=== PATIENT | female | born 1980 | race African-American/Black ===

== ENCOUNTER 2020-07-26 07:49 | Day surgery (SDC) | payer SELFPAY ==
[2020-07-26] MEDS ORDERED: LIDOCAINE 1% INJ-PF (10 MG/ML) 30 ML SDV ONE ×2 (08:52→11:15)
[2020-07-26] MEDS ORDERED: BACITRACIN INJ 50,000 UNIT VIAL ONE (08:52)
[2020-07-26 09:19] LABS: ABSOLUTE EOSINOPHILS # (AUTO) 0.1 10^3/uL (0.0-0.6); ABSOLUTE LYMPHOCYTES (AUTO) 1.2 10^3/uL (0.5-4.7); ABSOLUTE MONOCYTES (AUTO) 0.3 10^3/uL (0.1-1.4); ABSOLUTE NEUT (AUTO) 1.8 10^3/uL (1.7-8.2); BASOPHILS % (AUTO) 0.4 % (0-2); EOSINOPHILS % (AUTO) 3.7 % (0-6); HEMATOCRIT 37.8 % (36.0-47.0); HEMOGLOBIN 12.6 g/dL (12.0-15.5); LYMPHOCYTES % (AUTO) 34.2 % (13-45); MEAN CORPUSCULAR HEMOGLOBIN 30.7 pg (27.0-33.4); MEAN CORPUSCULAR HGB CONC 33.4 g/dL (32.0-36.0); MEAN CORPUSCULAR VOLUME 92 fl (80-97); MONOCYTES % (AUTO) 8.5 % (3-13); PLATELET COUNT 240 10^3/uL (150-450); RED CELL DISTRIBUTION WIDTH 14.1 % (11.5-14.0); SEGMENTED NEUTROPHILS % (AUTO) 53.2 % (42-78); TOTAL CELLS COUNTED % (AUTO) 100 %; WHITE BLOOD COUNT 3.4 10^3/uL (4.0-10.5)
[2020-07-26] MEDS ORDERED: FENTANYL CITRATE INJ/PF 100 MCG/2 ML AMPUL ONE ×2 (10:00→11:15)
[2020-07-26] MEDS ORDERED: MIDAZOLAM 2 MG/2 ML INJ ONE ×3 (10:00→11:14)
--- NOTE | 2020-07-26 11:48 | Discharge Summary ---
Discharge Summary (SDC) - Discharge Final Diagnosis: Locally advanced right breast carcinoma Date of Surgery: 07/26/20 Discharge Date: 07/26/20 Condition: Good Treatment or Instructions: May use port; may shower in 48 hours; resume preoperative medications, diet, activity: Prescription added electronically; patient to follow-up with [facility] in 2 weeks Prescriptions: Ketorolac Tromethamine [Toradol 10 mg Tablet] 10 mg PO Q6HP PRN #14 tablet PRN Reason: Referrals: ALIA PHILLIPS MD [Primary Care Provider] - Discharge Diet: As Tolerated Discharge Activity: Activity As Tolerated Home Care Assistance: None Needed Report the Following to Your Physician Immediately: Shortness of Breath, Increase in Pain, Fever over 101 Degrees
--- NOTE | 2020-07-26 11:52 | Operative Report ---
Operative Report DATE OF SURGERY: 07/26/20 PREOPERATIVE DIAGNOSIS: Locally advanced right breast carcinoma POSTOPERATIVE DIAGNOSIS: Same OPERATION: 1. Focused ultrasound left neck, with ultrasound directed insertion of [id number]-o-Drxc catheter, left internal jugular vein. 2. Port placement to the left subclavian position. 3. Interpretation of intraoperative fluoroscopy. SURGEON: KATYA SORIANO ANESTHESIA: Moderate Sedation TISSUE REMOVED OR ALTERED: None COMPLICATIONS: None ESTIMATED BLOOD LOSS: Scant INTRAOPERATIVE FINDINGS: See below PROCEDURE: Patient was taken from the ambulatory area to the main cardiac catheterization lab where she was placed in supine position arms tucked, left neck and chest wall prepped and draped in sterile fashion. Surgical plan and surgical timeout were conducted. Left neck was scanned with a variable frequency linear transducer. Appropriate level of conscious sedation was induced. There is significant for a patent, compressible left internal jugular vein. Skin was anesthetized with 1% plain lidocaine, robert made with a 15 blade, micro needle and wire threaded into the left internal jugular vein without difficulty. A suitable site for placement of the port was chosen left subclavian position. Skin was anesthetized with 1% plain lidocaine. A 3 and half centimeter incision was made, parallel to the left clavicle, subcutaneous pocket developed with electrocautery, and single lumen catheter trimmed to the appropriate length, tunnel between the 2 incisions, then attached to the port with the plastic retention ring. The port was tucked into the left subclavian pocket. Under fluoroscopic guidance, the microwire was switched over to a conventional guidewire, 0.030 inches. The 8 [place]ander dilator introducer sheath was threaded over the wire, dilator and introducer removed, and free catheter fragment threaded into the left internal jugular vein. The tip of the catheter was advanced to the right atrium, and the strip away sheath removed. There was no kinking of the catheter at the neck. The catheter was aspirated and flushed with heparinized saline using a Anna needle. There is no mechanical bleeding. Sponge and counts are correct. All wounds closed with 3-0 Vicryl, benzoin and Steri-Strips. Documentation of the left internal jugular vein by ultrasound, and completion fluoroscopy retained in the patient's record by the radiology services team
[2020-07-26] MEDS ORDERED: KETOROLAC TROMETHAMINE INJ/PF 30 MG/1 ML SDV ONE ×2 (12:07→12:23)
[2020-07-26] MEDS ORDERED: KETOROLAC TROMETHAMINE INJ/PF 30 MG/1 ML SDV IV ONE (12:30)
[2020-07-26 13:02] VITALS: BP 142/96
--- NOTE | 2020-07-27 09:01 | RADIOLOGY REPORT (SQ) ---
EXAM DESCRIPTION: PORTACATH INSERTION IMAGES COMPLETED DATE/TIME: 07/26/2020 11:36 am REASON FOR STUDY: RT BREAST CA C50.911 MALIGNANT NEOPLASM OF UNSP SITE OF RIGHT FEMALE JESUSITA COMPARISON: None. FLUOROSCOPY TIME: Less than 0.1 minutes. Cine fluoroscopic images saved to PACS. TECHNIQUE: Intra-operative images acquired during surgical procedure to evaluate progress. NUMBER OF IMAGES: Cine fluoroscopic images. LIMITATIONS: None. FINDINGS: Images of the chest acquired during port placement. IMPRESSION: IMAGE(S) OBTAINED DURING PROCEDURE. COMMENT: Quality ID 145: Final reports for procedures using fluoroscopy that document radiation exp osure indices, or exposure time and number of fluorographic images (if radiation exposure indices are not available) Please consult full operative report of the attending physician for description of the procedure. TECHNICAL DOCUMENTATION: JOB ID: [id number] 2010 [employer]- All Rights Reserved Reading location - IP/workstation name: [email or web address]
== END 2020-07-26 13:10 | disposition home or self-care (01) ==
LOC: CCL 07:49
PROVIDERS: ATTEND Surgery
DX: C50.911 Malignant neoplasm of unspecified site of right female breast (principal); F17.200 Nicotine dependence, unspecified, uncomplicated; Z03.818 Encounter for observation for suspected exposure to other biological agents ruled out; Z80.6 Family history of leukemia
CPT/HCPCS: 36415; 84703; 85025; 87635; 36561; 76937; 77001; C1752; J2250; J3490 ×2; J3010; J1885; J1644; C9803

== ENCOUNTER → 2020-07-27 | Outpatient (CLI) | payer SELFPAY ==
[~2020-07-27] MED LIST: CEFAZOLIN 1 GM/D5W RTU 1 GM/50 ML RTUPB IV ONE
--- NOTE | 2020-07-27 18:46 | RADIOLOGY REPORT (SQ) ---
EXAM DESCRIPTION: CT CHEST WITH; CT ABD/PELVIS WITH IV ORAL IMAGES COMPLETED DATE/TIME: 07/27/2020 9:21 am REASON FOR STUDY: C50.411 MALIG NEOPLM OF UPPER-OUTER QUADRANT OF RIGHT FEMALE BREAST C50.411 MALIG NEOPLM OF UPPER-OUTER QUADRANT OF RIGHT FEMALE CONTRAST TYPE AND DOSE: contrast/concentration: Isovue 350.00 mmol/ml; Total Contrast Delivered: 100 .0 ml; Total Saline Delivered: 72.0 ml RENAL FUNCTION: None required. The patient is less than 50 years old. COMPARISON: None. TECHNIQUE: CT scan of the chest performed using helical scanning technique with dynamic intravenous contrast injection. Images reviewed with lung, soft tissue and bone windows. Reconstructed coronal a nd sagittal MPR images reviewed. All images stored on PACS. All CT scanners at this facility use dose modulation, iterative reconstruction, and/or weight based d osing when appropriate to reduce radiation dose to as low as reasonably achievable (ALARA). [facility]: Dose Right [facility]: CareDose [facility]: Dose Right [facility]: Teradose 4D [facility]: Medical [employer] RADIATION DOSE: CT Rad equipment meets quality standard of care and radiation dose reduction techniq ues were employed. CTDIvol: 11.4 - 16.6 mGy. DLP: 1993 mGy-cm. . LIMITATIONS: None. FINDINGS: AXILLAE: No adenopathy. CHEST WALL: No masses. No subcutaneous air. LUNGS: 50% left pneumothorax. No infiltrate, effusion, or mass. PLEURA: No effusions. No calcifications. THYROID: No masses or significant asymmetry. HILAR AND MEDIASTINAL STRUCTURES: No identified masses or abnormal nodes. AORTA AND GREAT VESSELS: No aneurysm. No dissection. PULMONARY ARTERIES: No identified pulmonary emboli. Study not optimized for the pulmonary arteries. HEART: No pericardial effusion. HARDWARE AND LIFELINES: Injection port on the left. BONES: No significant finding. OTHER: No other significant finding. IMPRESSION: 50% left pneumothorax. No evidence of metastatic disease in the thorax. COMPARISON: None. RADIATION DOSE: CT Rad equipment meets quality standard of care and radiation dose reduction techniq ues were employed. CTDIvol: 11.4 - 16.6 mGy. DLP: 1993 mGy-cm. mGy. TECHNIQUE: CT scan of the abdomen and pelvis performed with intravenous and oral contrast using priya lynette scanning technique with dynamic intravenous contrast injection. Images reviewed with lung, soft tissue and bone windows. Reconstructed coronal and sagittal MPR images reviewed. Delayed images for evaluation of the urinary system also acquired and evaluated. All images stored on PACS. All CT scanners at this facility use dose modulation, iterative reconstruction, and/or weight based d osing when appropriate to reduce radiation dose to as low as reasonably achievable (ALARA). [facility]: Dose Right [facility]: [employer]Care [facility]: Dose Right [facility]: Teradose 4D [facility]: [employer] FINDINGS: LIVER: There is a 12 mm low-density lesion in the right lobe of the liver. No other signi ficant findings. SPLEEN: Normal size. No focal lesions. PANCREAS: No masses. No significant calcifications. No adjacent inflammation or peripancreatic flui d collections. Pancreatic duct not dilated. GALLBLADDER: No identified stones by CT criteria. No inflammatory changes to suggest cholecystitis. ADRENAL GLANDS: No significant masses or asymmetry. RIGHT KIDNEY AND URETER: No solid masses. No significant calcifications. No hydronephrosis or hyd roureter. LEFT KIDNEY AND URETER: No solid masses. No significant calcifications. No hydronephrosis or hydr oureter. AORTA AND VESSELS: No aneurysm. No dissection. Renal arteries, SMA, celiac without stenosis. RETROPERITONEUM: No retroperitoneal adenopathy, hemorrhage or masses. LARGE AND SMALL BOWEL: No dilatation. No masses. No wall thickening. APPENDIX: Normal. ABDOMINAL WALL: No hernia or masses. PERITONEAL CAVITY: No free air. No free fluid. No peritoneal implants or masses. PELVIS: No mass or free fluid. Normal bladder. BONES: No significant or acute findings. OTHER: No other significant finding. IMPRESSION: There is no evidence of abdominal or pelvic metastases. There is a low-density lesion i n the right lobe of the liver that likely represents a cyst or hemangioma. COMMENT: Pertinent findings on the imaging study reported as a CRITICAL RESULT to ALIA PHILLIPS MD at18:34 on 07/27/2020. Category of Critical Result: Pneumothorax TECHNICAL DOCUMENTATION: JOB ID: [id number] Quality ID # 436: Final reports with documentation of one or more dose reduction techniques (e.g., Au tomated exposure control, adjustment of the mA and/or kV according to patient size, use of iterative reconstruction technique) 2010 [employer]- All Rights Reserved Reading location - IP/workstation name: [email or web address]
--- NOTE | 2020-07-27 18:46 | RADIOLOGY REPORT (SQ) ---
EXAM DESCRIPTION: CT CHEST WITH; CT ABD/PELVIS WITH IV ORAL IMAGES COMPLETED DATE/TIME: 07/27/2020 9:21 am REASON FOR STUDY: C50.411 MALIG NEOPLM OF UPPER-OUTER QUADRANT OF RIGHT FEMALE BREAST C50.411 MALIG NEOPLM OF UPPER-OUTER QUADRANT OF RIGHT FEMALE CONTRAST TYPE AND DOSE: contrast/concentration: Isovue 350.00 mmol/ml; Total Contrast Delivered: 100 .0 ml; Total Saline Delivered: 72.0 ml RENAL FUNCTION: None required. The patient is less than 50 years old. COMPARISON: None. TECHNIQUE: CT scan of the chest performed using helical scanning technique with dynamic intravenous contrast injection. Images reviewed with lung, soft tissue and bone windows. Reconstructed coronal a nd sagittal MPR images reviewed. All images stored on PACS. All CT scanners at this facility use dose modulation, iterative reconstruction, and/or weight based d osing when appropriate to reduce radiation dose to as low as reasonably achievable (ALARA). [facility]: Dose Right [facility]: CareDose [facility]: Dose Right [facility]: Teradose 4D [facility]: [employer] RADIATION DOSE: CT Rad equipment meets quality standard of care and radiation dose reduction techniq ues were employed. CTDIvol: 11.4 - 16.6 mGy. DLP: 1993 mGy-cm. . LIMITATIONS: None. FINDINGS: AXILLAE: No adenopathy. CHEST WALL: No masses. No subcutaneous air. LUNGS: 50% left pneumothorax. No infiltrate, effusion, or mass. PLEURA: No effusions. No calcifications. THYROID: No masses or significant asymmetry. HILAR AND MEDIASTINAL STRUCTURES: No identified masses or abnormal nodes. AORTA AND GREAT VESSELS: No aneurysm. No dissection. PULMONARY ARTERIES: No identified pulmonary emboli. Study not optimized for the pulmonary arteries. HEART: No pericardial effusion. HARDWARE AND LIFELINES: Injection port on the left. BONES: No significant finding. OTHER: No other significant finding. IMPRESSION: 50% left pneumothorax. No evidence of metastatic disease in the thorax. COMPARISON: None. RADIATION DOSE: CT Rad equipment meets quality standard of care and radiation dose reduction techniq ues were employed. CTDIvol: 11.4 - 16.6 mGy. DLP: 1993 mGy-cm. mGy. TECHNIQUE: CT scan of the abdomen and pelvis performed with intravenous and oral contrast using priya lynette scanning technique with dynamic intravenous contrast injection. Images reviewed with lung, soft tissue and bone windows. Reconstructed coronal and sagittal MPR images reviewed. Delayed images for evaluation of the urinary system also acquired and evaluated. All images stored on PACS. All CT scanners at this facility use dose modulation, iterative reconstruction, and/or weight based d osing when appropriate to reduce radiation dose to as low as reasonably achievable (ALARA). [facility]: Dose Right [facility]: SureCare [facility]: Dose Right [facility]: Teradose 4D [facility]: [employer] FINDINGS: LIVER: There is a 12 mm low-density lesion in the right lobe of the liver. No other signi ficant findings. SPLEEN: Normal size. No focal lesions. PANCREAS: No masses. No significant calcifications. No adjacent inflammation or peripancreatic flui d collections. Pancreatic duct not dilated. GALLBLADDER: No identified stones by CT criteria. No inflammatory changes to suggest cholecystitis. ADRENAL GLANDS: No significant masses or asymmetry. RIGHT KIDNEY AND URETER: No solid masses. No significant calcifications. No hydronephrosis or hyd roureter. LEFT KIDNEY AND URETER: No solid masses. No significant calcifications. No hydronephrosis or hydr oureter. AORTA AND VESSELS: No aneurysm. No dissection. Renal arteries, SMA, celiac without stenosis. RETROPERITONEUM: No retroperitoneal adenopathy, hemorrhage or masses. LARGE AND SMALL BOWEL: No dilatation. No masses. No wall thickening. APPENDIX: Normal. ABDOMINAL WALL: No hernia or masses. PERITONEAL CAVITY: No free air. No free fluid. No peritoneal implants or masses. PELVIS: No mass or free fluid. Normal bladder. BONES: No significant or acute findings. OTHER: No other significant finding. IMPRESSION: There is no evidence of abdominal or pelvic metastases. There is a low-density lesion i n the right lobe of the liver that likely represents a cyst or hemangioma. COMMENT: Pertinent findings on the imaging study reported as a CRITICAL RESULT to ALIA PHILLIPS MD at18:34 on 07/27/2020. Category of Critical Result: Pneumothorax TECHNICAL DOCUMENTATION: JOB ID: [id number] Quality ID # 436: Final reports with documentation of one or more dose reduction techniques (e.g., Au tomated exposure control, adjustment of the mA and/or kV according to patient size, use of iterative reconstruction technique) 2010 [employer]- All Rights Reserved Reading location - IP/workstation name: [email or web address]
--- NOTE | 2020-07-28 09:59 | RADIOLOGY REPORT (SQ) ---
EXAM DESCRIPTION: NM WHOLE BODY BONE SCAN IMAGES COMPLETED DATE/TIME: 07/27/2020 1:12 pm REASON FOR STUDY: C50.411 MALIG NEOPLM OF UPPER-OUTER QUADRANT OF RIGHT FEMALE BREAST C50.411 MALIG NEOPLM OF UPPER-OUTER QUADRANT OF RIGHT FEMALE COMPARISON: CT chest abdomen pelvis. RADIONUCLIDE AND DOSE: 20 millicuries Tc99m MDP. The route of agent administration: Intravenous. ADDITIONAL DRUGS AND DOSES: None. TECHNIQUE: Routine delayed images at 3 hours post radionuclide injection acquired of the bony skelet on including anterior and posterior whole-body projections and additional focused images as needed. LIMITATIONS: None. FINDINGS: BONES: There is focal uptake in the right maxilla and left mandible, likely dental disease . The overall appearance of the scan does not suggest metastatic disease to bone. KIDNEYS: Symmetric excretion without obstruction. OTHER: No other significant finding. IMPRESSION: The overall appearance of the scan does not suggest metastatic disease to bone. COMMENT: Quality measure 147: Current bone scan is compared with any available plain radiographs, p rior bone scans, and CT/MRI. TECHNICAL DOCUMENTATION: JOB ID: [id number] 2010 [employer]- All Rights Reserved Reading location - IP/workstation name: [email or web address]
== END ==
LOC: RAD 08:36
PROVIDERS: ATTEND Internal Medicine Hematology & Oncology
DX: K71.0 Toxic liver disease with cholestasis (principal); C50.411 Malignant neoplasm of upper-outer quadrant of right female breast
CPT/HCPCS: 78306; 71260; 74177; A9503; J0690; Q9969

== ENCOUNTER → 2020-07-30 | Outpatient (CLI) | payer MEDICAID ==
--- NOTE | 2020-07-30 12:11 | RADIOLOGY REPORT (SQ) ---
EXAM DESCRIPTION: NM MUGA REST IMAGES COMPLETED DATE/TIME: 07/30/2020 11:59 am REASON FOR STUDY: Z08 ENCOUNTER FOR FOLLOW-UP EXAMINATION AFTER COMPLETED TREATMENT FOR MALIG Z08 E NCNTR FOR FOLLOW-UP EXAM AFTER TRTMT FOR MALIGNANT NEOP Z01.89 ENCOUNTER FOR OTHER SPECIFIED SPECIAL EXAMINATIONS C50.411 MALIG NEOPLM OF UPPER-OUTER QUADRANT OF RIGHT FEMALE COMPARISON: None. RADIONUCLIDE AND DOSE: 26.3 mCi technetium 99m labeled red blood cells The route of agent administration: Intravenous TECHNIQUE: Following administration of the radionuclide, gated images of the heart are obtained in t hree projections. Left ventricular functional analysis performed. LIMITATIONS: None. FINDINGS: LEFT VENTRICULAR FUNCTION: EJECTION FRACTION: 72%. END-DIASTOLIC VOLUME: 110 mL. END-SYSTOLIC VOLUME: 38 mL. WALL MOTION: No focal wall motion abnormalities. OTHER: No other significant finding. IMPRESSION: NORMAL CARDIAC MUGA STUDY. NORMAL LEFT VENTRICULAR FUNCTION WITH VALUES ABOVE. TECHNICAL DOCUMENTATION: JOB ID: [id number] 2010 [employer]- All Rights Reserved Reading location - IP/workstation name: [email or web address]
== END ==
LOC: RAD 10:51
PROVIDERS: ATTEND Internal Medicine Hematology & Oncology
DX: Z08 Encounter for follow-up examination after completed treatment for malignant neoplasm (principal); Z01.89 Encounter for other specified special examinations; C50.411 Malignant neoplasm of upper-outer quadrant of right female breast
CPT/HCPCS: 78472; A9560; Q9969

== ENCOUNTER → 2020-08-02 | Outpatient (CLI) | payer MEDICAID ==
--- NOTE | 2020-08-02 14:38 | RADIOLOGY REPORT (SQ) ---
EXAM DESCRIPTION: CHEST 2 VIEWS IMAGES COMPLETED DATE/TIME: 08/02/2020 2:29 pm REASON FOR STUDY: PNEUMOTHORAX, UNSPECIFIED COMPARISON: CT chest dated 07/27/2020 EXAM PARAMETERS: NUMBER OF VIEWS: two views TECHNIQUE: Digital Frontal and Lateral radiographic views of the chest acquired. RADIATION DOSE: NA LIMITATIONS: none FINDINGS: LUNGS AND PLEURA: Persistent left apical pneumothorax. Largest diameter is 2.5 cm. No me diastinal shift. No consolidation. MEDIASTINUM AND HILAR STRUCTURES: No masses or contour abnormalities. HEART AND VASCULAR STRUCTURES: Heart normal size. No evidence for failure. BONES: No acute findings. HARDWARE: [id number] is in place. OTHER: No other significant finding. IMPRESSION: Persistent left apical pneumothorax. Largest diameter is 2.5 cm on today's chest x-ray. TECHNICAL DOCUMENTATION: JOB ID: [id number] 2010 [employer]- All Rights Reserved Reading location - IP/workstation name: [email or web address]
== END ==
LOC: RAD 14:05
PROVIDERS: ATTEND Surgery
DX: J93.9 Pneumothorax, unspecified (principal)
CPT/HCPCS: 71046

== ENCOUNTER → 2020-08-10 | Outpatient (CLI) | payer SELFPAY ==
--- NOTE | 2020-08-10 14:47 | RADIOLOGY REPORT (SQ) ---
EXAM DESCRIPTION: CHEST 2 VIEWS IMAGES COMPLETED DATE/TIME: 08/10/2020 2:30 pm REASON FOR STUDY: J93.83 OTHER PNEUMOTHORAX J93.83 OTHER PNEUMOTHORAX COMPARISON: 08/02/2020 NUMBER OF VIEWS: Two view TECHNIQUE: Frontal and lateral radiographic images of the chest acquired. LIMITATIONS: None. FINDINGS: LUNGS AND PLEURA: Decrease in size of left apical pneumothorax now less than 10%. MEDIASTINUM AND HILAR STRUCTURES: Stable heart size and mediastinal structures. HEART AND VASCULAR STRUCTURES: Stable appearance. SUPPORT DEVICES: Appropriate location without change. BONES: No acute findings. OTHER: No other significant finding. IMPRESSION: Decrease in size of left apical pneumothorax. TECHNICAL DOCUMENTATION: JOB ID: [id number] 2010 [employer]- All Rights Reserved Reading location - IP/workstation name: [email or web address]
== END ==
LOC: RAD 14:16
PROVIDERS: ATTEND Surgery
DX: J93.83 Other pneumothorax (principal)
CPT/HCPCS: 71046

== ENCOUNTER 2020-08-24 08:02 | Outpatient (CLI) | payer OTHER ==
[~2020-08-24 08:02] MED LIST changes: -CEFAZOLIN 1 GM/D5W RTU 1 GM/50 ML RTUPB IV ONE; +NORMAL SALINE 250 ML @ KVO IV PRN
[2020-08-24] MEDS ORDERED: DIPHENHYDRAMINE 50 MG in NS 50 ML IV PRN (08:41)
[2020-08-24] MEDS ORDERED: FAMOTIDINE 20 MG in NS 50 ML IV PRN (08:41)
[2020-08-24] MEDS ORDERED: DEXAMETHASONE SOD PHOSPHATE IV PRN (08:42)
[2020-08-24] MEDS ORDERED: NORMAL SALINE IV PRN ×2 (08:42→08:44)
[2020-08-24] MEDS ORDERED: ONDANSETRON HCL IV PRN (08:42)
[2020-08-24] MEDS ORDERED: PERTUZUMAB 840 MG in NORMAL SALINE 250 ML IV PRN (08:43)
[2020-08-24] MEDS ORDERED: TRASTUZUMAB IV PRN (08:44)
[2020-08-24] MEDS ORDERED: DOCETAXEL 155 MG in NORMAL SALINE 250 ML IV PRN (08:45)
[2020-08-24] MEDS ORDERED: CARBOPLATIN 750 MG in NORMAL SALINE 250 ML IV PRN (08:46)
[2020-08-24 08:47] VITALS: BP 129/77
== END 2020-08-24 16:05 | disposition home or self-care (01) ==
LOC: II 08:02 → 5TH 08:05 → II 16:05
PROVIDERS: ATTEND Internal Medicine Hematology & Oncology
DX: Z51.11 Encounter for antineoplastic chemotherapy (principal); C50.411 Malignant neoplasm of upper-outer quadrant of right female breast
CPT/HCPCS: 96413; 96367; 96417; J1200; J9045; J2405; J7050; S0028; J1100; J9306; J9355; J9171; J1642

== ENCOUNTER 2020-09-01 08:51 | Outpatient (CLI) | payer OTHER ==
[2020-09-01] MEDS ORDERED: ONDANSETRON HCL INJ/PF 4 MG/2 ML SDV IV PRN (09:11)
[2020-09-01] MEDS ORDERED: NORMAL SALINE 1000 ML 1,000 ML IV ONE (10:00)
[2020-09-01 10:01] VITALS: BP 101/70
== END 2020-09-01 10:30 | disposition home or self-care (01) ==
LOC: II 08:51 → 5TH 08:55 → II 10:30
PROVIDERS: ATTEND Physician Assistant Medical
DX: E86.0 Dehydration (principal); C50.411 Malignant neoplasm of upper-outer quadrant of right female breast
CPT/HCPCS: 36415; 83735; 96374; 96361; J2405; J1642

== ENCOUNTER 2020-09-03 11:52 | Emergency (ER) | payer OTHER ==
[2020-09-03] MEDS ORDERED: NORMAL SALINE 1000 ML 1,000 ML IV ONE (13:14)
[2020-09-03] MEDS ORDERED: MORPHINE SULFATE 10 MG/ML INJ IV ONE (13:15)
[2020-09-03] MEDS ORDERED: ONDANSETRON HCL INJ/PF 4 MG/2 ML SDV IV ONE (13:15)
--- NOTE | 2020-09-03 13:42 | ER Document Report ---
ED General - General Chief Complaint: Weakness Stated Complaint: WEAKNESS,PAIN,HAS PORT IN Time Seen by Provider: 09/03/20 12:55 Primary Care Provider: ALIA PHILLIPS MD [Primary Care Provider] - Follow up as needed Notes: CHIEF COMPLAINT: Weakness, fatigue, myalgia HPI: 40-year-old female who is a breast cancer patient of Dr. Stinson presenting for weakness fatigue and myalgia. Patient had chemotherapy for the first time on August 24. Patient has been complaining about myalgia fatigue and weakness over the last 10 days, states she went to the office 4 days ago and was told her blood counts were low. Patient states that they put her on Percocet 10 at home for the body ache but it has not helped. No fever. She does report dysuria today. No abdominal pain no vomiting no chest pain no shortness of breath ROS: See HPI - all other systems were reviewed and are otherwise negative Constitutional: no fever Eyes: no drainage, no blurred vision ENT: no runny nose, no sore throat Cardiovascular: no chest pain Resp: no SOB, no cough GI: no vomiting, no diarrhea, no abdominal pain : Positive dysuria Integumentary: no rash Allergy: no hives Musculoskeletal: Positive myalgia Neurological: no numbness/tingling, positive generalized weakness MEDICATIONS: I agree with the patient medications as charted by the RN. ALLERGIES: I agree with the allergies as charted by the RN. PAST MEDICAL HISTORY/PAST SURGICAL HISTORY: Reviewed and agree as charted by RN. SOCIAL HISTORY: Reviewed and agree as charted by RN. FAMILY HISTORY: No significant familial comorbid conditions directly related to patient complaint EXAM: Reviewed vital signs as charted by RN. CONSTITUTIONAL: Alert and oriented and responds appropriately to questions. Well-appearing; well-nourished HEAD: Normocephalic; atraumatic EYES: PERRL; Conjunctivae clear, sclerae non-icteric ENT: normal nose; no rhinorrhea; moist mucous membranes; pharynx without lesions noted, no uvula edema or deviation, no tonsillar hypertrophy, phonation normal NECK: Supple without meningismus; non-tender; no cervical lymphadenopathy, no masses CARD: Mild tachycardia; no murmurs, no clicks, no rubs, no gallops; symmetric distal pulses RESP: Normal chest excursion without splinting or tachypnea; breath sounds clear and equal bilaterally; no wheezes, no rhonchi, no rales, pulse oximetry 97% on room air not hypoxic ABD/GI: Normal bowel sounds; non-distended; soft, non-tender, no rebound, no guarding; no palpable organomegaly or masses. BACK: The back appears normal and is non-tender to palpation, there is no CVA tenderness EXT: Normal ROM in all joints; mild generalized myalgia is noted; no cyanosis, no effusions, no edema SKIN: Normal color for age and race; warm; dry; good turgor; no acute lesions noted NEURO: Moves all extremities equally; Motor and sensory function intact PSYCH: The patient's mood and manner are appropriate. Grooming and personal hygiene are appropriate. MDM: 40-year-old female breast cancer patient of Dr. Stinson had chemotherapy 10 days ago with body ache and myalgia. She believes her blood counts are also l ow. States she did have a nosebleed several days ago none today. No chest pain no shortness of breath no abdominal pain does report dysuria. Will obtain baseline screening labs hydrate patient treat pain discussed with hematology The patient was evaluated during the global COVID-19 pandemic and that diagnosis was suspected/considered upon their initial presentation. Their evaluation, treatment and testing was consistent with current guidelines for patients who present with complaints or symptoms that may be related to COVID-19 - Related Data Allergies/Adverse Reactions: No Known Allergies Allergy (Unverified 08/24/20 08:39) Past Medical History - Social History Smoking Status: Former Smoker Family History: Reviewed & Not Pertinent - Past Medical History Cardiac Medical History: Denies: Hx Coronary Artery Disease, Hx Heart Attack, Hx Hypertension Pulmonary Medical History: Denies: Hx Asthma, Hx Bronchitis, Hx COPD, Hx Pneumonia Neurological Medical History: Denies: Hx Cerebrovascular Accident, Hx Seizures Musculoskeletal Medical History: Denies Hx Arthritis Physical Exam - Vital signs Vitals: Temp Pulse Resp BP Pulse Ox 98.4 F 116 H 20 131/86 H 97 09/03/20 12:01 09/03/20 12:01 09/03/20 12:01 09/03/20 12:01 09/03/20 12:01 Course - Re-evaluation Re-evalutation: 09/03/20 14:59 Patient is noted to be neutropenic. I spoke with Dr. Brush, oncology. He recommends Levaquin 500 mg once daily for 7 days. He recommends placing patient on hydrocodone for pain. They will follow the patient in the office. I spoke with the patient about this at length she is comfortable with this plan - Vital Signs Vital signs: Temp Pulse Resp BP Pulse Ox 98.4 F 99 18 131/61 H 99 09/03/20 12:01 09/03/20 12:58 09/03/20 12:58 09/03/20 12:58 09/03/20 12:58 - Laboratory Results Result Diagrams: 09/03/20 13:26 09/03/20 13:26 Laboratory Results Interpreted: 09/03/20 09/03/20 09/03/20 13:26 13:26 13:26 WBC 0.9 L* Hgb 11.6 L Hct 34.2 L Plt Count 115 L Lymph % (Auto) 76.6 H Caldwell % (Auto) 20.6 H Absolute Neuts (auto) 0.0 L Seg Neutrophils % 0.9 L Sodium 135.4 L Anion Gap 3 L Lactic Acid 0.6 L Urine Protein 09/03/20 13:26 WBC Hgb Hct Plt Count Lymph % (Auto) Caldwell % (Auto) Absolute Neuts (auto) Seg Neutrophils % Sodium Anion Gap Lactic Acid Urine Protein 30 H Critical Laboratory Results Reviewed: Yes Attending or Supervising Physician who Reviewed Labs: [facility] hematology - Radiology Results Critical Radiology Results Reviewed: No Critical Results Discharge - Discharge Clinical Impression: Myalgia Neutropenia Qualifiers: Neutropenia type: secondary to cancer chemotherapy Qualified Code(s): D70.1 - Agranulocytosis secondary to cancer chemotherapy; T45.1X5A - Adverse effect of antineoplastic and immunosuppressive drugs, initial encounter Condition: Stable Disposition: HOME, SELF-CARE Additional Instructions: Take the Levaquin as prescribed. Take the hydrocodone for pain. Follow-up through your hematology office for further pain management and evaluation return for onset of fever greater than 101 Prescriptions: Hydrocodone/Acetaminophen [Nellis 5-325 mg Tablet] 1 tab PO Q4HP PRN #10 tablet PRN Reason: Levofloxacin [Levaquin 500 mg Tablet] 500 mg PO DAILY #7 tablet Referrals: ALIA PHILLIPS MD [Primary Care Provider] - Follow up as needed
[2020-09-03 13:59] LABS: APPEARANCE,URINE SLIGHTLY-CLOUDY; BILIRUBIN,URINE NEGATIVE (NEGATIVE); COLOR,URINE YELLOW; GLUCOSE, URINE NEGATIVE (NEGATIVE); KETONES,URINE NEGATIVE (NEGATIVE); LEUKOCYTE ESTERASE,URINE NEGATIVE (NEGATIVE); NITRITE,URINE NEGATIVE (NEGATIVE); PROTEIN,URINE 30 mg/dL (NEGATIVE); URINE SPECIFIC GRAVITY 1.034; UROBILINOGEN,URINE NEGATIVE mg/dL (<2.0)
[2020-09-03 14:00] LABS: ABSOLUTE LYMPHOCYTES (AUTO) 0.7 10^3/uL (0.5-4.7); ABSOLUTE MONOCYTES (AUTO) 0.2 10^3/uL (0.1-1.4); BASOPHILS % (AUTO) 0.9 % (0-2); HEMATOCRIT 34.2 % (36.0-47.0); HEMOGLOBIN 11.6 g/dL (12.0-15.5); LYMPHOCYTES % (AUTO) 76.6 % (13-45); MEAN CORPUSCULAR HEMOGLOBIN 30.5 pg (27.0-33.4); MEAN CORPUSCULAR VOLUME 90 fl (80-97); MONOCYTES % (AUTO) 20.6 % (3-13); PLATELET COUNT 115 10^3/uL (150-450); RED BLOOD COUNT 3.81 10^6/uL (3.72-5.28); RED CELL DISTRIBUTION WIDTH 13.9 % (11.5-14.0); SEGMENTED NEUTROPHILS % (AUTO) 0.9 % (42-78); TOTAL CELLS COUNTED % (AUTO) 100 %
[2020-09-03 14:01] LABS: INTERNATIONAL RATION (INR) 0.96
[2020-09-03 14:17] LABS: ALBUMIN 3.9 g/dL (3.5-5.0); ALKALINE PHOSPHATASE 79 U/L (38-126); ASPARTATE AMINO TRANSFERASE 28 U/L (14-36); BILIRUBIN,DIRECT 0.2 mg/dL (0.0-0.4); BILIRUBIN,TOTAL 0.5 mg/dL (0.2-1.3); BLOOD UREA NITROGEN 7 mg/dL (7-20); CALCIUM 9.3 mg/dL (8.4-10.2); CARBON DIOXIDE 29 mmol/L (22-30); CHLORIDE 103 mmol/L (98-107); CREATINE KINASE 53 U/L (30-135); GLUCOSE 92 mg/dL (75-110); POTASSIUM 4.1 mmol/L (3.6-5.0); TOTAL PROTEIN 7.1 g/dL (6.3-8.2)
[2020-09-03 14:19] LABS: ANION GAP 3 (5-19)
[2020-09-03 14:39] LABS: WHITE BLOOD COUNT 0.9 10^3/uL (4.0-10.5)
[2020-09-03 14:41] LABS: PLATELET COMMENT DECREASED; RBC MORPHOLOGY COMMENT NORMO-CYTIC/CHROMIC
[2020-09-03] MEDS ORDERED: HYDROCODONE/ACETAMINOPHEN 5-325 MG (6 TAB/ER DISP) PO PRN (15:00)
[2020-09-03] MEDS ORDERED: HYDROCODONE/ACETAMINOPHEN 5-325 MG TABLET PO ONE (15:00)
[2020-09-03] MEDS ORDERED: LEVOFLOXACIN 750 MG TABLET PO ONE (15:01)
[2020-09-03 15:22] VITALS: BP 140/84
[2020-09-06 16:12] LABS: PATH REVIEW PATHOLOGIST REVIEWED
== END 2020-09-03 15:34 | disposition home or self-care (01) ==
LOC: ER 11:52
DX: D70.1 Agranulocytosis secondary to cancer chemotherapy (principal); T45.1X5A Adverse effect of antineoplastic and immunosuppressive drugs, initial encounter; C50.919 Malignant neoplasm of unspecified site of unspecified female breast; R53.1 Weakness; R53.83 Other fatigue; M79.10 Myalgia, unspecified site; R30.0 Dysuria; Z87.891 Personal history of nicotine dependence; Z20.828 Contact with and (suspected) exposure to other viral communicable diseases
CPT/HCPCS: 99284; 96361; 96374; 96375; 36415; 87040; 87086; 82550; 83605; 85025; 85610; 87088; 80053; 81001; J2270; J2405; J7030; J1642

== ENCOUNTER 2020-09-07 12:58 | Outpatient (CLI) | payer OTHER ==
[~2020-09-07 12:58] MED LIST changes: +NORMAL SALINE 1000 ML 1,000 ML IV PRN; -NORMAL SALINE 250 ML @ KVO IV PRN
[2020-09-07 14:08] VITALS: BP 122/81
== END 2020-09-07 14:12 | disposition home or self-care (01) ==
LOC: II 12:58 → 5TH 13:00 → II 14:12
PROVIDERS: ATTEND Physician Assistant Medical
DX: C50.411 Malignant neoplasm of upper-outer quadrant of right female breast (principal); E86.0 Dehydration
CPT/HCPCS: 96360; J1642

== ENCOUNTER 2020-09-09 08:46 | Outpatient (CLI) | payer OTHER ==
[2020-09-09 09:00] VITALS: BP 131/79
== END 2020-09-09 10:00 | disposition home or self-care (01) ==
LOC: II 08:46 → 5TH 08:49 → II 10:00
PROVIDERS: ATTEND Physician Assistant Medical
DX: E86.0 Dehydration (principal); C50.411 Malignant neoplasm of upper-outer quadrant of right female breast
CPT/HCPCS: 96360; J1642

== ENCOUNTER 2020-09-14 08:09 | Outpatient (CLI) | payer OTHER ==
[~2020-09-14 08:09] MED LIST changes: +CARBOPLATIN 750 MG in NORMAL SALINE 250 ML IV PRN; +DEXAMETHASONE SOD PHOSPHATE IV PRN; +DIPHENHYDRAMINE 50 MG in NS 50 ML IV PRN; +DOCETAXEL 155 MG in NORMAL SALINE 250 ML IV PRN; +FAMOTIDINE 20 MG in NS 50 ML IV PRN; -NORMAL SALINE 1000 ML 1,000 ML IV PRN; +NORMAL SALINE 250 ML @ KVO IV PRN; +NORMAL SALINE IV PRN; +ONDANSETRON HCL IV PRN; +PERTUZUMAB 420 MG in NORMAL SALINE 250 ML IV PRN; +TRASTUZUMAB IV PRN
[2020-09-14 08:46] VITALS: BP 127/82
== END 2020-09-14 16:19 | disposition home or self-care (01) ==
LOC: II 08:09 → 5TH 08:12 → II 16:19
PROVIDERS: ATTEND Internal Medicine Hematology & Oncology
DX: Z51.11 Encounter for antineoplastic chemotherapy (principal); C50.411 Malignant neoplasm of upper-outer quadrant of right female breast
CPT/HCPCS: 96413; 96415; 96367; 96417; J1200; J9045; J2405; J7050; S0028; J1100; J9306; J9355; J9171; J1642

== ENCOUNTER 2020-09-15 15:38 | Outpatient (CLI) | payer OTHER ==
[~2020-09-15 15:38] MED LIST changes: -CARBOPLATIN 750 MG in NORMAL SALINE 250 ML IV PRN; -DEXAMETHASONE SOD PHOSPHATE IV PRN; -DIPHENHYDRAMINE 50 MG in NS 50 ML IV PRN; -DOCETAXEL 155 MG in NORMAL SALINE 250 ML IV PRN; -FAMOTIDINE 20 MG in NS 50 ML IV PRN; -NORMAL SALINE 250 ML @ KVO IV PRN; -NORMAL SALINE IV PRN; -ONDANSETRON HCL IV PRN; +PEGFILGRASTIM-CBQV 6 MG/0.6 ML SYRINGE SUBCUT PRN; -PERTUZUMAB 420 MG in NORMAL SALINE 250 ML IV PRN; -TRASTUZUMAB IV PRN
[2020-09-15 15:47] VITALS: BP 131/87
== END 2020-09-15 16:36 | disposition home or self-care (01) ==
LOC: II 15:38 → 5TH 15:44 → II 16:36
PROVIDERS: ATTEND Internal Medicine Hematology & Oncology
DX: Z76.89 Persons encountering health services in other specified circumstances (principal); C50.411 Malignant neoplasm of upper-outer quadrant of right female breast; D70.1 Agranulocytosis secondary to cancer chemotherapy
CPT/HCPCS: 96372; Q5111

== ENCOUNTER 2020-09-17 12:33 | Outpatient (CLI) | payer OTHER ==
[~2020-09-17 12:33] MED LIST changes: +NORMAL SALINE 1000 ML @ AS DIRECTED IV PRN; -PEGFILGRASTIM-CBQV 6 MG/0.6 ML SYRINGE SUBCUT PRN
[2020-09-17] MEDS ORDERED: DEXAMETHASONE SOD PHOSPHATE IV PRN (12:40)
[2020-09-17] MEDS ORDERED: ONDANSETRON HCL IV PRN (12:40)
[2020-09-17] MEDS ORDERED: NORMAL SALINE IV PRN (12:40)
[2020-09-17 12:45] VITALS: BP 108/60
[2020-09-17 15:14] LABS: ALBUMIN 3.9 g/dL (3.5-5.0); ALKALINE PHOSPHATASE 95 U/L (38-126); ASPARTATE AMINO TRANSFERASE 42 U/L (14-36); BILIRUBIN,DIRECT 0.2 mg/dL (0.0-0.4); BILIRUBIN,TOTAL 0.4 mg/dL (0.2-1.3); BLOOD UREA NITROGEN 12 mg/dL (7-20); CARBON DIOXIDE 32 mmol/L (22-30); GLUCOSE 110 mg/dL (75-110); POTASSIUM 3.8 mmol/L (3.6-5.0)
[2020-09-17 15:19] LABS: CHLORIDE 99 mmol/L (98-107)
[2020-09-17 15:20] LABS: ANION GAP 6 (5-19)
== END 2020-09-17 14:00 | disposition home or self-care (01) ==
LOC: II 12:33 → 5TH 12:37 → II 14:00
PROVIDERS: ATTEND Internal Medicine Hematology & Oncology
DX: E86.0 Dehydration (principal); R11.0 Nausea; C50.411 Malignant neoplasm of upper-outer quadrant of right female breast
CPT/HCPCS: 87086; 84100; 80053; 96365; 96361; J2405; J1100; J1642

== ENCOUNTER 2020-09-21 11:34 | Outpatient (CLI) | payer OTHER ==
[~2020-09-21 11:34] MED LIST changes: +NORMAL SALINE 1000 ML 1,000 ML IV PRN; -NORMAL SALINE 1000 ML @ AS DIRECTED IV PRN
[2020-09-21 12:01] VITALS: BP 124/81
== END 2020-09-21 13:18 | disposition home or self-care (01) ==
LOC: II 11:34 → 5TH 11:36 → II 13:18
PROVIDERS: ATTEND Internal Medicine Hematology & Oncology
DX: E86.0 Dehydration (principal); C50.411 Malignant neoplasm of upper-outer quadrant of right female breast
CPT/HCPCS: 96360; J1642

== ENCOUNTER 2020-09-22 08:49 | Outpatient (CLI) | payer OTHER ==
[2020-09-22 09:00] VITALS: BP 120/76
== END 2020-09-22 10:07 | disposition home or self-care (01) ==
LOC: II 08:49 → 5TH 08:52 → II 10:07
PROVIDERS: ATTEND Internal Medicine Hematology & Oncology
DX: E86.0 Dehydration (principal); C50.411 Malignant neoplasm of upper-outer quadrant of right female breast
CPT/HCPCS: 96360; J1642

== ENCOUNTER 2020-09-23 08:50 | Outpatient (CLI) | payer OTHER ==
[2020-09-23 08:59] VITALS: BP 130/83
== END 2020-09-23 10:00 | disposition home or self-care (01) ==
LOC: II 08:50 → 5TH 09:02 → II 10:00
PROVIDERS: ATTEND Internal Medicine Hematology & Oncology
DX: E86.0 Dehydration (principal); C50.411 Malignant neoplasm of upper-outer quadrant of right female breast
CPT/HCPCS: 96360; J1642

== ENCOUNTER 2020-09-24 08:54 | Outpatient (CLI) | payer OTHER ==
[2020-09-24 09:10] VITALS: BP 134/89
== END 2020-09-24 10:17 | disposition home or self-care (01) ==
LOC: II 08:54 → 5TH 08:57 → II 10:17
PROVIDERS: ATTEND Internal Medicine Hematology & Oncology
DX: E86.0 Dehydration (principal); C50.411 Malignant neoplasm of upper-outer quadrant of right female breast
CPT/HCPCS: 96360; J1642

== ENCOUNTER 2020-09-28 08:46 | Outpatient (CLI) | payer OTHER ==
[2020-09-28 09:00] VITALS: BP 128/81
== END 2020-09-28 10:22 | disposition home or self-care (01) ==
LOC: II 08:46 → 5TH 08:50 → II 10:22
PROVIDERS: ATTEND Internal Medicine Hematology & Oncology
DX: E86.0 Dehydration (principal); C50.411 Malignant neoplasm of upper-outer quadrant of right female breast
CPT/HCPCS: 96360; J1642

== ENCOUNTER 2020-09-30 11:37 | Outpatient (CLI) | payer OTHER ==
[2020-09-30 11:53] VITALS: BP 135/76
== END 2020-09-30 12:59 | disposition home or self-care (01) ==
LOC: II 11:37 → 5TH 11:42 → II 12:59
PROVIDERS: ATTEND Internal Medicine Hematology & Oncology
DX: E86.0 Dehydration (principal); C50.411 Malignant neoplasm of upper-outer quadrant of right female breast
CPT/HCPCS: 96360; J1642

== ENCOUNTER 2020-10-07 09:12 | Outpatient (CLI) | payer OTHER ==
[~2020-10-07 09:12] MED LIST changes: +CARBOPLATIN 750 MG in NORMAL SALINE 250 ML IV PRN; +DIPHENHYDRAMINE HCL 50 MG in NORMAL SALINE 50 ML IV PRN; +DOCETAXEL 155 MG in NORMAL SALINE 250 ML IV PRN; +FAMOTIDINE/PF 20 MG in NORMAL SALINE 50 ML IV PRN; -NORMAL SALINE 1000 ML 1,000 ML IV PRN; +NORMAL SALINE 250 ML IV PRN; +NORMAL SALINE IV PRN; +ONDANSETRON HCL/PF 16 MG, DEXAMETHASONE SOD PHOSPHATE 20 MG in NORMAL SALINE 50 ML IV PRN; +PERTUZUMAB 420 MG in NORMAL SALINE 250 ML IV PRN; +TRASTUZUMAB IV PRN
[2020-10-07 09:32] VITALS: BP 138/83
== END 2020-10-07 16:37 | disposition home or self-care (01) ==
LOC: II 09:12 → 5TH 09:16 → II 16:37
PROVIDERS: ATTEND Internal Medicine Hematology & Oncology
DX: Z51.11 Encounter for antineoplastic chemotherapy (principal); C50.411 Malignant neoplasm of upper-outer quadrant of right female breast
CPT/HCPCS: 96413; 96367; 96417; J1200; J9045; J2405; J7050; S0028; J1100; J9306; J9355; J9171; J1642

== ENCOUNTER 2020-10-08 15:37 | Outpatient (CLI) | payer OTHER ==
[~2020-10-08 15:37] MED LIST changes: -CARBOPLATIN 750 MG in NORMAL SALINE 250 ML IV PRN; -DIPHENHYDRAMINE HCL 50 MG in NORMAL SALINE 50 ML IV PRN; -DOCETAXEL 155 MG in NORMAL SALINE 250 ML IV PRN; -FAMOTIDINE/PF 20 MG in NORMAL SALINE 50 ML IV PRN; -NORMAL SALINE 250 ML IV PRN; -NORMAL SALINE IV PRN; -ONDANSETRON HCL/PF 16 MG, DEXAMETHASONE SOD PHOSPHATE 20 MG in NORMAL SALINE 50 ML IV PRN; +PEGFILGRASTIM-CBQV 6 MG/0.6 ML SYRINGE SUBCUT PRN; -PERTUZUMAB 420 MG in NORMAL SALINE 250 ML IV PRN; -TRASTUZUMAB IV PRN
[2020-10-08 15:48] VITALS: BP 143/93
== END 2020-10-08 15:50 | disposition home or self-care (01) ==
LOC: II 15:37 → 5TH 15:38 → II 15:50
PROVIDERS: ATTEND Internal Medicine Hematology & Oncology
DX: Z76.89 Persons encountering health services in other specified circumstances (principal); C50.411 Malignant neoplasm of upper-outer quadrant of right female breast; D70.1 Agranulocytosis secondary to cancer chemotherapy
CPT/HCPCS: 96372; Q5111